=== PATIENT | male | born 2000 | race Caucasian/White ===

== ENCOUNTER 2024-02-09 21:43 | Emergency (ER) | payer MEDICAID ==
[~2024-02-09] VITALS: Ht 180.3 cm; Wt 65.0 kg
[2024-02-09 21:49] VITALS: TEMP 98.3; O2SAT 99
[2024-02-09] MEDS ORDERED: MORPHINE SULFATE 4 MG/ML INJ (FOR IV/IM USE) IV ONE (22:30)
[2024-02-09 23:23] LABS: BASOPHILS % 0.4 % (0.0-2.0); EOSINOPHILS % 0.6 % (0.0-5.0); HEMATOCRIT. 43.5 % (42.0-52.0); HEMOGLOBIN. 15.2 g/dL (14.0-18.0); LYMPHOCYTES % 9.3 % (20.0-50.0); MEAN CORPUSCULAR HEMOGLOBIN 34.3 pg (28.0-32.0); MEAN CORPUSCULAR HGB CONC 34.9 g/dL (31.0-37.0); MEAN CORPUSCULAR VOLUME 98.3 fL (80.0-94.0); MEAN PLATELET VOLUME 7.1 fl (7.4-10.4); MONOCYTES % 10.5 % (2.0-8.0); NEUTROPHILS % 79.2 % (40.0-76.0); PLATELET 259 x1000/uL (130-400); RED BLOOD CELL COUNT 4.42 mill/uL (4.7-6.1); RED CELL DISTRIBUTION WIDTH 12.6 % (11.6-14.6); WHITE BLOOD COUNT 11.2 x1000/uL (4.5-11.0)
[2024-02-09 23:31] LABS: CHLORIDE 103 mEq/L (98-107); POTASSIUM 3.9 mEq/L (3.5-5.1); SODIUM 135 mEq/L (136-145)
[2024-02-09 23:32] LABS: CARBON DIOXIDE 25 mEq/L (21-32)
[2024-02-09 23:33] LABS: CALCIUM 10.1 mg/dL (8.7-10.4)
[2024-02-09 23:37] LABS: CREATININE 0.9 mg/dL (0.6-1.3); GLUCOSE 101 mg/dL (70-105)
[2024-02-09 23:38] LABS: UREA NITROGEN BLOOD 15 mg/dL (9-23)
[2024-02-09 23:39] LABS: ALANINE AMINOTRANSFERASE 73 IU/L (10-49); ASPARTATE AMINOTRANSFERASE 163 IU/L (<34)
[2024-02-09 23:40] LABS: BILIRUBIN DIRECT 0.3 mg/dL (<=3.0)
[2024-02-10] MEDS: LIDOCAINE 5% PATCH TOP SCH (01:35)
[2024-02-10] MEDS: MORPHINE SULFATE 4 MG/ML INJ (FOR IV/IM USE) IV NR (01:52)
[2024-02-10] MEDS: KETOROLAC 15MG/ML VIAL IV ONE (04:16)
[2024-02-10 05:22] VITALS: BP 106/66; PULSE 96; RESP 14; O2SAT 100
== END 2024-02-10 06:28 | disposition home or self-care (01) ==
LOC: ER 21:43
DX: M54.50 Low back pain, unspecified (principal); F15.10 Other stimulant abuse, uncomplicated; G31.89 Other specified degenerative diseases of nervous system
CPT/HCPCS: 80076; 80048; 83690; 85025; 36415; 99285; 70450; 71260; 74177; 96374; J2270; Z7610

== ENCOUNTER 2024-02-10 06:21 | Emergency (ER) | payer MEDICAID ==
[2024-02-10 06:37] VITALS: PULSE 113; RESP 16; O2SAT 100
[2024-02-10] MEDS ORDERED: IOHEXOL-300 100 ML BOTTLE ONE (07:16)
== END 2024-02-10 08:08 | disposition left against medical advice (07) ==
LOC: ER 06:31
DX: M54.9 Dorsalgia, unspecified (principal); Z53.21 Procedure and treatment not carried out due to patient leaving prior to being seen by health care provider
CPT/HCPCS: Q9967